=== PATIENT | female | born 1985 | race Caucasian/White ===

== ENCOUNTER 2018-04-23 15:33 | Emergency (ER) | payer SELFPAY ==
--- NOTE | 2018-04-23 16:26 | EDPHY ---
H & P Time Seen by Provider: 04/23/18 16:21 HPI/ROS: CHIEF COMPLAINT: Right lower quadrant abdominal pain HISTORY OF PRESENT ILLNESS: Patient is history cholecystectomy and hysterectomy. Had these symptoms for about last 3 weeks and was seen at that time in [place], told me she had a negative white blood cell count and a ultrasound and CT scan.\ She presents today with worsening and persistent symptoms. Today she had sharp severe right lower quadrant pain at 1300 which is persistent and better now than it was. Associated with nausea. Does not radiate. Not associated with hematuria vaginal bleeding or discharge. No recent injury or trauma. No fever or chills. No vomiting or diarrhea. REVIEW OF SYSTEMS: Eye: no change in vision ENT: no sore throat Cardiac: no chest pain or syncope Pulmonary: no cough or SOB Abdomen: HPI Musculoskeletal: no back pain Skin: no rash Neuro: no headache Constitutional: no fever : no urinary symptoms A comprehensive 10 point review of systems is otherwise negative aside from elements mentioned in the history of present illness. PAST MEDICAL HISTORY: Hysterectomy and cholecystectomy, left shoulder surgery, sinus surgery Social history: , she and her moved here about 1 month ago General Appearance: Alert and conversant, cooperative. Eyes: No scleral icterus. ENT, Mouth: Normal mucous membranes. Respiratory: Normal respiratory effort, breath sounds equal, lungs are clear to auscultation. Cardiovascular: Regular rate and rhythm. Gastrointestinal: Right lower quadrant abdominal tenderness, no hernia noted, no rebound or guarding. Bowel sounds present. No masses. Neurological: Alert, face symmetric, normal motor and sensory in extremities. Ambulatory. Skin: Warm and dry, no rashes. Musculoskeletal: No peripheral edema. Psychiatric: Not agitated. Emergency Department course/MDM: Plan for repeat labs and urine, ultrasound, test not ordered because of hysterectomy. 1.8x 2.2cm right ovarian cyst per Isuani on US, complex, flow to both ovaries, at 1742. 1743: Results discussed with the patient. Unlikely to have appendicitis with 3 weeks of symptoms, normal white blood cell count, no peritoneal signs, and I believe the ultrasound findings above likely explain her symptom complex. [employer] Work[employer] follow-up mandatory. Smoking Status: Never smoked Constitutional: Initial Vital Signs Temperature (C) 36.8 C 04/23/18 15:41 Heart Rate 65 04/23/18 15:41 Respiratory Rate 16 04/23/18 15:41 Blood Pressure 134/75 H 04/23/18 15:41 O2 Sat (%) 99 04/23/18 15:41 O2 Delivery Mode Room Air Allergies/Adverse Reactions: ceftriaxone [From Rocephin] Allergy (Verified 04/23/18 15:41) cephalexin [From Keflex] Allergy (Verified 04/23/18 15:41) hydromorphone [From Dilaudid] Allergy (Verified 04/23/18 15:41) Home Medications: Medication Instructions Recorded NK [No Known Home Meds] 04/23/18 Medical Decision Making - Diagnostics Imaging Results: Imaging Impressions Pelvic/Renal Ultrasound 04/23/18 16:35 Impression: 1. Right ovarian complex 2.2 x 1.8 x 1.8 cm cyst probably a hemorrhagic cyst. 2. No ovarian torsion or significant free fluid. 3. Prior hysterectomy. Findings and recommendations discussed with Emergency Department physician, TROY HSIEH at 17:44 hour, 04/23/2018. Final report concurs with initial preliminary interpretation. Imaging: Discussed imaging studies w/ banquet server on call Radiologist Differential Diagnosis: Differential considered including but not limited to UTI, renal colic, appendicitis, ovarian cyst, ovarian torsion, PID. - Data Points Laboratory Results: Laboratory Results 04/23/18 16:50 04/23/18 16:50 04/23/18 04/23/18 04/23/18 16:50 16:50 16:35 WBC 7.39 10^3/uL 10^3/uL (3.80-9.50) RBC 4.69 10^6/uL 10^6/uL (4.18-5.33) Hgb 14.1 g/dL g/dL (12.6-16.3) Hct 40.9 % % (38.0-47.0) MCV 87.2 fL fL (81.5-99.8) MCH 30.1 pg pg (27.9-34.1) MCHC 34.5 g/dL g/dL (32.4-36.7) RDW 12.4 % % (11.5-15.2) Plt Count 230 10^3/uL 10^3/uL (150-400) MPV 10.1 fL fL (8.7-11.7) Neut % (Auto) 55.1 % % (39.3-74.2) Lymph % (Auto) 35.2 % % (15.0-45.0) George % (Auto) 6.8 % % (4.5-13.0) Eos % (Auto) 2.4 % % (0.6-7.6) Baso % (Auto) 0.4 % % (0.3-1.7) Nucleat RBC Rel Count 0.0 % % (0.0-0.2) Absolute Neuts (auto) 4.07 10^3/uL 10^3/uL (1.70-6.50) Absolute Lymphs (auto) 2.60 10^3/uL 10^3/uL (1.00-3.00) Absolute Monos (auto) 0.50 10^3/uL 10^3/uL (0.30-0.80) Absolute Eos (auto) 0.18 10^3/uL 10^3/uL (0.03-0.40) Absolute Basos (auto) 0.03 10^3/uL 10^3/uL (0.02-0.10) Absolute Nucleated RBC 0.00 10^3/uL 10^3/uL (0-0.01) Immature Gran % 0.1 % % (0.0-1.1) Immature Gran # 0.01 10^3/uL 10^3/uL (0.00-0.10) Sodium 141 mEq/L mEq/L (135-145) Potassium 3.6 mEq/L mEq/L (3.3-5.0) Chloride 105 mEq/L mEq/L (97-110) Carbon Dioxide 23 mEq/l mEq/l (22-31) Anion Gap 13 mEq/L mEq/L (8-16) BUN 10 mg/dL mg/dL (7-23) Creatinine 0.7 mg/dL mg/dL (0.6-1.0) Estimated GFR > 60 Glucose 86 mg/dL mg/dL (70-100) Calcium 9.8 mg/dL mg/dL (8.5-10.4) Urine Color PALE YELLOW Urine Appearance CLEAR Urine pH 6.0 (5.0-7.5) Ur Specific [place] 1.004 (1.002-1.030) Urine Protein NEGATIVE (NEGATIVE) Urine Ketones NEGATIVE (NEGATIVE) Urine Blood NEGATIVE (NEGATIVE) Urine Nitrate NEGATIVE (NEGATIVE) Urine Bilirubin NEGATIVE (NEGATIVE) Urine Urobilinogen NEGATIVE EU EU (0.2-1.0) Ur Leukocyte Esterase NEGATIVE (NEGATIVE) Urine Glucose NEGATIVE (NEGATIVE) Medications Given: Discontinued Medications Hydrocodone Bitart/Acetaminophen ([place] 5/325) 1 tab PO EDNOW ONE Stop: 04/23/18 17:51 Last Admin: 04/23/18 17:55 Dose: 1 tab Ibuprofen (Motrin) 600 mg PO EDNOW ONE Stop: 04/23/18 17:51 Last Admin: 04/23/18 17:55 Dose: 600 mg Departure - Departure Disposition: Home, Routine, Self-Care Clinical Impression: Ovarian cyst Qualifiers: Laterality: right Qualified Code(s): N83.201 - Unspecified ovarian cyst, right side Condition: Good Instructions: Ovarian Cyst (ED) Additional Instructions: 1.8 x2.2 complex right ovarian cyst on ultrasound. Please follow-up within the next 2 weeks with OBGYN as referred below. Referrals: Stanford Dunham MD [Medical Doctor] - As per Instructions Rocio Conn MD [Medical Doctor] - As per Instructions
[2018-04-23 16:58] LABS: PLATELET COUNT 230 10^3/uL (150-400)
[2018-04-23] MEDS ORDERED: IBUPROFEN 600 MG TAB PO ONE (17:50)
[2018-04-23] MEDS ORDERED: HYDROCODONE/APAP 5/325 TAB PO ONE (17:50)
[2018-04-23 17:57] VITALS: BP 118/71
== END 2018-04-23 17:56 | disposition home or self-care (01) ==
DX: N83.201 Unspecified ovarian cyst, right side (principal)